=== PATIENT | female | born 1975 | race Caucasian/White ===

== ENCOUNTER 2024-02-12 11:01 | Emergency (ER) | payer BC ==
[~2024-02-12] VITALS: Ht 167.6 cm; Wt 131.4 kg
[2024-02-12 12:57] LABS: BASO # 0.02 K/mm3 (0.02-0.10); EOS # 0.07 K/mm3 (0.04-0.40); EOS % 1.7 % (1.0-5.0); HEMATOCRIT 40.3 % (37.0-47.0); HEMOGLOBIN 13.4 g/dL (12.5-16.0); LYMPH# 1.33 K/mm3 (1.50-4.00); MEAN CELL VOLUME 87 fl (78-100); MEAN CORPUSCULAR HEMOGLOBIN 29 pg (27-31); MEAN CORPUSCULAR HGB CONC 33 g/dL (33-37); MEAN PLATELET VOLUME 9.8 fl (7.4-10.4); MONO # 0.81 K/mm3 (0.20-0.80); NEU # 1.83 K/mm3 (1.40-6.50); PLATELET COUNT 198 K/mm3 (130-400); RED BLOOD COUNT 4.63 M/mm3 (4.10-5.30); RED CELL DISTRIBUTION WIDTH 13.1 % (11.5-14.5); WHITE BLOOD COUNT 4.1 K/mm3 (4.8-10.8)
[2024-02-12 13:04] LABS: ALBUMIN 4.4 g/dL (3.5-5.0)
[2024-02-12 13:06] LABS: CALCIUM 9.5 mg/dL (8.3-10.5)
[2024-02-12 13:07] LABS: TOTAL PROTEIN 8.2 g/dL (6.4-8.3)
[2024-02-12 13:09] LABS: TOTAL BILIRUBIN 0.4 mg/dL (0.2-1.2)
[2024-02-12] MEDS ORDERED: ESCITALOPRAM20 MG PO (13:39)
[2024-02-12] MEDS ORDERED: METFORMIN ER500 MG PO (13:39)
[2024-02-12] MEDS ORDERED: GABAPENTIN100 MG PO (13:40)
[2024-02-12] MEDS ORDERED: BUSPIRONE5 MG PO (13:41)
[2024-02-12] MEDS ORDERED: LISINOPRIL AND1 TA1 PO (13:42)
[2024-02-12] MEDS ORDERED: NOVOLOG FLEX100 U/ML SQ (13:45)
[2024-02-12] MEDS ORDERED: LISINOPRIL20 MG PO (13:47)
[2024-02-12] MEDS ORDERED: SIMVASTATIN20 M1 PO (13:47)
[2024-02-12 13:48] LABS: URINE APPEARANCE CLOUDY (CLEAR); URINE COLOR YELLOW (YELLOW); URINE PROTEIN(semi-quant) TRACE (NEGATIVE)
[2024-02-12] MEDS ORDERED: OZEMPIC0.25 MG/02 SQ (13:48)
[2024-02-12 13:49] LABS: URINE BILIRUBIN NEGATIVE (NEGATIVE); URINE BLOOD TRACE-INTACT (NEGATIVE); URINE GLUCOSE 2+ (NEGATIVE); URINE KETONE 1+ (NEGATIVE); URINE LEUKOCYTE ESTERASE NEGATIVE (NEGATIVE); URINE NITRATE NEGATIVE (NEGATIVE)
[2024-02-12 13:54] LABS: URINE WBC 16-30 /hpf (0-3)
[2024-02-12] MEDS ORDERED: MACROBID 100 M100 MG PO (14:08)
[2024-02-12 14:26] VITALS: BP 150/85
== END 2024-02-12 14:34 | disposition home or self-care (01) ==
LOC: ED 11:01
PROVIDERS: Physician Assistant
DX: J10.1 Influenza due to other identified influenza virus with other respiratory manifestations (principal); N39.0 Urinary tract infection, site not specified
CPT/HCPCS: J0696

== ENCOUNTER → 2024-06-17 | Outpatient (CLI) | payer BC ==
[~2024-06-17] MED LIST: BUSPIRONE5 MG PO; ESCITALOPRAM20 MG PO; GABAPENTIN100 MG PO; LISINOPRIL AND1 TA1 PO; LISINOPRIL20 MG PO; MACROBID 100 M100 MG PO; METFORMIN ER500 MG PO; NOVOLOG FLEX100 U/ML SQ; OZEMPIC0.25 MG/02 SQ; SIMVASTATIN20 M1 PO
[2024-06-17 17:08] LABS: BASO # 0.03 K/mm3 (0.02-0.10); EOS # 0.13 K/mm3 (0.04-0.40); EOS % 1.7 % (1.0-5.0); HEMATOCRIT 37.5 % (37.0-47.0); HEMOGLOBIN 12.7 g/dL (12.5-16.0); LYMPH# 3.09 K/mm3 (1.50-4.00); MEAN CELL VOLUME 87 fl (78-100); MEAN CORPUSCULAR HEMOGLOBIN 30 pg (27-31); MEAN CORPUSCULAR HGB CONC 34 g/dL (33-37); MONO # 0.62 K/mm3 (0.20-0.80); NEU # 3.86 K/mm3 (1.40-6.50); PLATELET COUNT 238 K/mm3 (130-400); RED BLOOD COUNT 4.31 M/mm3 (4.10-5.30); WHITE BLOOD COUNT 7.7 K/mm3 (4.8-10.8)
[2024-06-17 17:16] LABS: ALBUMIN 4.1 g/dL (3.5-5.0)
[2024-06-17 17:17] LABS: CALCIUM 9.1 mg/dL (8.3-10.5)
[2024-06-17 17:19] LABS: TOTAL PROTEIN 7.8 g/dL (6.4-8.3)
[2024-06-17 17:21] LABS: TOTAL BILIRUBIN 0.3 mg/dL (0.2-1.2)
== END ==
LOC: LAB 16:49
PROVIDERS: Nurse Practitioner Family
DX: R10.11 Right upper quadrant pain (principal)